=== PATIENT | male | born 1940 | race Caucasian/White ===

== ENCOUNTER 2017-05-21 02:45 | Inpatient (IN) | payer MEDICARE ==
[2017-05-21] MEDS ORDERED: NS 0.9% 1000 ML* 1,000 ML IV ONE (02:55)
[2017-05-21 03:33] LABS: Hematocrit 31 % (42-52); Hemoglobin 10.4 g/dl (14.0-18.0); Mean Corpuscular HGB Conc 33 g/dl (31-36); Mean Corpuscular Hemoglobin 30 pg (27-31); Mean Corpuscular Volume 92 fL (80-94); Mean Platelet Volume 9 um3 (7.4-10.4); Red Blood Count 3.44 10^6/ul (4.0-5.4); Red Cell Distribution Width 13 % (10.5-15); White Blood Count 8.3 10^3/ul (3.5-10.8)
[2017-05-21 03:44] LABS: Albumin 3.5 g/dL (3.2-5.2); BUN/Creatinine Ratio 41.3 (8-20); EGFR African American 89.5 (>60); EGFR Non-African American 69.6 (>60); Globulin 3.2 g/dL (2-4); Potassium 4.4 mmol/L (3.5-5.0); Total Bilirubin 0.5 mg/dL (0.2-1.0); Total Protein 6.7 g/dL (6.4-8.9)
--- NOTE | 2017-05-21 04:12 | ED ---
Elizabeth Arreola Alfonso, scribed for Sonia Mccord MD on 05/21/17 at 0317 . GI/ HPI - HPI Summary HPI Summary: This patient is a 76 year old M BIBA to [facility] with a chief complaint of blood in vomit and stool since 0200 today. Pt vomited once coffee ground emesis. Pt reports 3x black tarry stool BM. Pt rates the pain 0/10 in severity. Symptoms aggravated and alleviated by nothing. Pt denies abdominal pain. In the field his BP was 80 systolic and after 100 cc of normal saline was 100 systolic. Pt is not on Coumadin or NSAIDs. Denies ETOH and substance abuse. PMHx of GI bleeds. - History of Current Complaint Chief Complaint: EDGIBleed Time Seen by Provider: 05/21/17 02:54 Stated Complaint: BLOODY STOOL/VOMITING Hx Obtained From: Patient Onset/Duration: Started Minutes Ago - 199 today, Still Present Timing: Constant Severity: Moderate Current Severity: Moderate Pain Intensity: 0 Pain Characteristics: Other: - Bleeding Associated Signs and Symptoms: Positive: Hematemesis - Coffee ground, Black Tarry Stool. Negative: Abdominal Pain Aggravating Factor(s): Nothing Alleviating Factor(s): Nothing - Allergy/Home Medications Allergies/Adverse Reactions: Allergies Allergy/AdvReac Type Severity Reaction Status Date / Time No Known Allergies Allergy Verified 05/21/17 03:19 PMH/Surg Hx/FS Hx/Imm Hx GI History: Reports: Hx Gastrointestinal Bleed Sensory History: Denies: Hx Deafness Opthamlomology History: Denies: Hx Legally Blind - Surgical History Surgery Procedure, Year, and Place: hernia surgeries; Infectious Disease History: No Infectious Disease History: Denies: Traveled Outside the [place] in Last 30 Days - Family History Known Family History: Negative: Hypertension - Social History Lives: With Family Alcohol Use: Rare Substance Use Type: Reports: None Smoking Status (MU): Never Smoked Tobacco Review of Systems Positive: Vomiting - coffee ground emesis. Negative: Abdominal Pain Genitourinary: Other - Positive black tarry stool BM All Other Systems Reviewed And Are Negative: Yes Physical Exam Triage Information Reviewed: Yes Vital Signs On Initial Exam: Initial Vitals Temp Pulse Resp BP Pulse Ox 97.5 F 63 18 108/44 95 05/21/17 02:48 05/21/17 02:48 05/21/17 02:48 05/21/17 02:48 05/21/17 02:48 Vital Signs Reviewed: Yes Appearance: Positive: Well-Appearing, No Pain Distress Skin: Positive: Warm, Skin Color Reflects Adequate Perfusion, Dry Eyes: Positive: EOMI, BONNIE ENT: Positive: Pharynx normal, TMs normal Neck: Positive: Supple, Nontender Respiratory/Lung Sounds: Positive: Clear to Auscultation, Breath Sounds Present. Negative: Rales, Rhonchi, Wheezes Cardiovascular: Positive: RRR, Other - No gallops. Negative: Murmur, Rub Abdomen Description: Positive: Nontender, Soft, Other: - No rebound. Melena at rectal exam.. Negative: Distended, Guarding Bowel Sounds: Positive: Present Musculoskeletal: Positive: Strength/ROM Intact, Other - No edema Neurological: Positive: Sensory/Motor Intact, Alert, Oriented to Person Place, Time, CN Intact II-III - 2-12 Psychiatric: Positive: Affect/Mood Appropriate - [place] Coma Scale Coma Scale Total: 15 Diagnostics - Vital Signs Vital Signs Temp Pulse Resp BP Pulse Ox 05/21/17 02:48 97.5 F 63 18 108/44 95 - Laboratory Lab Results: Lab Results 05/21/17 05/21/17 05/21/17 Range/Units 03:02 03:02 03:02 WBC 8.3 (3.5-10.8) 10^3/ul RBC 3.44 L (4.0-5.4) 10^6/ul Hgb 10.4 L (14.0-18.0) g/dl Hct 31 L (42-52) % MCV 92 (80-94) fL MCH 30 (27-31) pg MCHC 33 (31-36) g/dl RDW 13 (10.5-15) % Plt Count 128 L (150-450) 10^3/ul MPV 9 (7.4-10.4) um3 Neut % (Auto) 66.7 (38-83) % Lymph % (Auto) 21.2 L (25-47) % Mcdonough % (Auto) 10.1 H (1-9) % Eos % (Auto) 1.6 (0-6) % Baso % (Auto) 0.4 (0-2) % Absolute Neuts (auto) 5.5 (1.5-7.7) 10^3/ul Absolute Lymphs (auto) 1.8 (1.0-4.8) 10^3/ul Absolute Monos (auto) 0.8 (0-0.8) 10^3/ul Absolute Eos (auto) 0.1 (0-0.6) 10^3/ul Absolute Basos (auto) 0 (0-0.2) 10^3/ul Absolute Nucleated RBC 0 10^3/ul Nucleated RBC % 0 INR (Anticoag Therapy) 1.11 (0.89-1.11) APTT 25.0 L (26.0-36.3) seconds Sodium 132 L (133-145) mmol/L Potassium 4.4 (3.5-5.0) mmol/L Chloride 98 L (101-111) mmol/L Carbon Dioxide 29 (22-32) mmol/L Anion Gap 5 (2-11) mmol/L BUN 43 H (6-24) mg/dL Creatinine 1.04 (0.67-1.17) mg/dL Est GFR ( Amer) 89.5 (>60) Est GFR (Non-Af Amer) 69.6 (>60) BUN/Creatinine Ratio 41.3 H (8-20) Glucose 159 H (70-100) mg/dL Calcium 9.0 (8.6-10.3) mg/dL Total Bilirubin 0.50 (0.2-1.0) mg/dL AST 19 (13-39) U/L ALT 10 (7-52) U/L Alkaline Phosphatase 49 (34-104) U/L Total Protein 6.7 (6.4-8.9) g/dL Albumin 3.5 (3.2-5.2) g/dL Globulin 3.2 (2-4) g/dL Albumin/Globulin Ratio 1.1 (1-3) Blood Type Antibody Screen 05/21/17 Range/Units 03:02 WBC (3.5-10.8) 10^3/ul RBC (4.0-5.4) 10^6/ul Hgb (14.0-18.0) g/dl Hct (42-52) % MCV (80-94) fL MCH (27-31) pg MCHC (31-36) g/dl RDW (10.5-15) % Plt Count (150-450) 10^3/ul MPV (7.4-10.4) um3 Neut % (Auto) (38-83) % Lymph % (Auto) (25-47) % Mcdonough % (Auto) (1-9) % Eos % (Auto) (0-6) % Baso % (Auto) (0-2) % Absolute Neuts (auto) (1.5-7.7) 10^3/ul Absolute Lymphs (auto) (1.0-4.8) 10^3/ul Absolute Monos (auto) (0-0.8) 10^3/ul Absolute Eos (auto) (0-0.6) 10^3/ul Absolute Basos (auto) (0-0.2) 10^3/ul Absolute Nucleated RBC 10^3/ul Nucleated RBC % INR (Anticoag Therapy) (0.89-1.11) APTT (26.0-36.3) seconds Sodium (133-145) mmol/L Potassium (3.5-5.0) mmol/L Chloride (101-111) mmol/L Carbon Dioxide (22-32) mmol/L Anion Gap (2-11) mmol/L BUN (6-24) mg/dL Creatinine (0.67-1.17) mg/dL Est GFR ( Amer) (>60) Est GFR (Non-Af Amer) (>60) BUN/Creatinine Ratio (8-20) Glucose (70-100) mg/dL Calcium (8.6-10.3) mg/dL Total Bilirubin (0.2-1.0) mg/dL AST (13-39) U/L ALT (7-52) U/L Alkaline Phosphatase (34-104) U/L Total Protein (6.4-8.9) g/dL Albumin (3.2-5.2) g/dL Globulin (2-4) g/dL Albumin/Globulin Ratio (1-3) Blood Type O Positive Antibody Screen Pending Result Diagrams: 05/21/17 03:02 05/21/17 03:02 Lab Statement: Any lab studies that have been ordered have been reviewed, and results considered in the medical decision making process. - EKG 0256 Cardiac Rate: NL - BPM 63 EKG Rhythm: Sinus Rhythm EKG Interpretation: Low voltage. GIGU Course/Dx - Course Course Of Treatment: 76 yo male with gi bleed will be admitted by Dr. Majano, bp stabilized with one liter of normal saline - Diagnoses Provider Diagnoses: GI bleed - Physician Notifications Discussed Care Of Patient With: Bradley Majano Time Discussed With Above Provider: 03:54 Instructed by Provider To: Other - Consulted Dr. Majano (hospitalist) who agrees to admit. Discharge - Discharge Plan Condition: Improved Disposition: ADMITTED TO [facility] documentation as recorded by the Elizabeth dave Alfonso accurately reflects the service I personally performed and the decisions made by me, Sonia Mccord MD.
[2017-05-21] MEDS ORDERED: NS 0.9% 250 ML* 250 ML ONE (04:47)
[2017-05-21] MEDS: Pantoprazole IV* 80 MG in NS 0.9% 250 ML* 250 ML IVPB SCH ×2 (04:53→22:42)
[2017-05-21] MEDS: Pantoprazole IV* 40 MG IV ONE ×2 (04:54→05:22)
[2017-05-21] MEDS ORDERED: Pantoprazole IV* 80 MG in NS 0.9% 250 ML* 250 ML IVPB SCH (05:00)
[2017-05-21] MEDS ORDERED: Pantoprazole IV* 40 MG ONE (05:16)
[2017-05-21 06:02] LABS: Hematocrit 27 % (42-52)
--- NOTE | 2017-05-21 06:52 | HP ---
CC: Dr. Bishop * DATE OF ADMISSION: 05/21/17 PRIMARY CARE PROVIDER: Dr. Bishop CHIEF COMPLAINT: Vomiting blood. HISTORY OF PRESENT ILLNESS: The patient is a 76-year-old gentleman who said that earlier this evening he started to feel like he wasn't able to get fresh air. It wasn't that he was short of breath, but that it just didn't seem right when he was breathing. It seemed like he was breathing inside a bag. His friend came over and helped him to the bathroom where he had a bloody bowel movement, and started vomiting up [id number] material. Then he started having trouble staying awake. He felt like all the blood in his body was in his stomach. He lost consciousness around 2 a.m. His friend called 911 who came and took him to the ER. In the ER, the patient was found to be somewhat anemic and also to be guaiac positive. PAST MEDICAL HISTORY: Significant for benign prostatic hypertrophy, but he's unaware of what else, and we are attempting to get the records from his PCP. CURRENT MEDICATIONS: That we are aware of include Doxazosin 1 mg po q day. ALLERGIES/ADVERSE REACTIONS: He has no known drug allergies. FAMILY HISTORY: Reviewed, and non-contributory. SOCIAL HISTORY: No tobacco, alcohol, or recreational drug use. 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 He's a . He has no children. His friend, Mary Jane Rose, is his health care proxy; her number is [phone] and [phone]. His friend, Alphonso Marie, brought him in and helped with the history. REVIEW OF SYSTEMS: A 14-point review of systems was completed with the patient. All pertinent positives and negatives are in the history of present illness; otherwise, it is negative. PHYSICAL EXAMINATION GENERAL: A pleasant gentleman lying in bed in no acute distress. VITAL SIGNS: Blood pressure 105/57, pulse ox 98%, respiratory rate 19 breaths per minute, heart rate 65 beats per minute, temperature 97.5 degrees. HEENT: Normocephalic and atraumatic. Pupils are equal, round and reactive to light. Moist mucous membranes. He has poor dentition. NECK: Supple. No JVD, bruits, palpable thyroid or lymphadenopathy. CHEST: Clear to auscultation and percussion bilaterally. CARDIOVASCULAR: S1, S2 appreciated. Regular rate and rhythm. ABDOMEN: Positive bowel sounds in all four quadrants. Soft, nontender, and nondistended. No hepatosplenomegaly. EXTREMITIES: No cyanosis, clubbing, or edema. +2 peripheral pulses bilaterally. NEUROLOGIC: Alert and oriented x3. Moves all extremities. SKIN: No distinct rashes or abnormalities. LABORATORY DATA: White blood cell count 8.3, hemoglobin 10.4, hematocrit 31, platelets 128. Sodium 132, potassium 4.4, chloride 98, CO2 29, BUN 43, creatinine 1.04, glucose 159. INR 1.11. EKG shows normal sinus rhythm at a rate of 63 beats per minute, left axis deviation, left anterior hemiblock, no acute ST-T wave changes. ASSESSMENT AND PLAN: 1. Upper GI bleed - likely cause of his anemia and his coffee-ground emesis and melena. Will place on a Protonix drip. Check hemoglobin and hematocrit q 6 hours. Ask for GI to see him in the a.m. Make NPO. Normal saline 100 cc/ hour. 2. FEN - NPO and normal saline as noted. 3. DVT prophylaxis - sequential compression stockings. 4. The patient is a full code. TIME SEEN: Over 75 minutes were spent on this H and P, more than 40 minutes of which were spent in direct [id number]-ok-[id number] contact with the patient in evaluation, physical exam, counseling, and coordination of care. [id number]/[facility] #: [id number] MTDD
[2017-05-21] MEDS ORDERED: Midazolam* 1 MG/ML 10 ML VIAL (10 MG) ONE (09:30)
[2017-05-21] MEDS ORDERED: Meperidine SYRINGE* 50 MG/ML ONE (09:30)
[2017-05-21 12:48] LABS: Hematocrit 25 % (42-52); Hemoglobin 8.4 g/dl (14.0-18.0)
--- NOTE | 2017-05-21 15:19 | PN ---
Progress Note - Progress Note Date of Service: 05/21/17 Note: Pt seen in follow up this afternoon from his admission this AM. The patient has since had an upper endoscopy which showed an antral ulcer. Will continue to follow H/H which is still dropping-transfuse for Hb<7. Continue protonix drip.
[2017-05-21 19:58] LABS: Hematocrit 26 % (42-52); Hemoglobin 8.4 g/dl (14.0-18.0)
[2017-05-21] MEDS: NS 0.9% 1000 ML* 1,000 ML IV SCH (22:44)
--- NOTE | 2017-05-22 02:21 | CONS ---
GASTROENTEROLOGY CONSULT: DATE OF CONSULTATION: 05/21/17 CONSULTING PHYSICIANS: Tej Bishop MD, [place], [place]; Katie Duckworth DO. REASON FOR CONSULTATION: Coffee-ground emesis and black stool. 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 He had a loose black stool and then started coughing up or vomiting some coffee- ground material. He fainted around 2 a.m. and came to the emergency room. He was found to be heme positive with a hemoglobin of 10.4, platelets 128. INR 1.11, BUN 43, and normal LFTs. He was admitted on a Protonix drip. He has not had any further emesis or loose stools. He states that he feels his stomach is rumbling and he can hear contractions. He denies any prior episodes like this. 20 years ago or more, he did have upper endoscopy in [place] with stretching. Per the report, he had colonoscopy results of that are not known. He denies any current dyspepsia or dysphagia. He eats a general diet. He states that his weight has not changed in the last year or two. He does take a baby aspirin and also Bufferin most nights to deal with foot or leg pain. PAST MEDICAL HISTORY: 1. BPH. 2. History of GERD with esophageal stricture. SOCIAL HISTORY: He lives in [place] and is a . 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 He has a housemate, Alphonso Marie, who helps with his care. His proxy is his niece, Mary Jane Rose, retired RN ). REVIEW OF SYSTEMS: There is no history of CVA, seizures, other syncope, hepatitis, jaundice, alcoholism, hemoptysis, TB, or renal stones. EXAM: He is a bearded older man, hard of hearing, in no overt distress at this time. He denies any pain, though states his abdomen is rumbling. Pulse is 65, blood pressure 105/57. HEENT exam shows no icterus. Mucous membranes are normal. He has no adenopathy. His lungs are clear and heart sounds are regular. The abdomen is symmetric without any surgical scars. Soft and nontender. Rectal: Deferred given the hematemesis. Extremities show no edema. Neurologic: Nonfocal with him being hard of hearing, but otherwise cranial nerves are normal. He moves all 4 extremities symmetrically. Gait was not tested. IMAGING: None this admission so far. He did have a brain CT in September [address] 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 No contrast was used. IMPRESSION: Gastrointestinal bleeding from the upper tract, probably related to aspirin use. Further details will be obtained from his niece. [id number]/[facility] #: [id number] [facility]
[2017-05-22 05:26] LABS: Hematocrit 26 % (42-52); Hemoglobin 8.7 g/dl (14.0-18.0); Mean Corpuscular HGB Conc 33 g/dl (31-36); Mean Corpuscular Hemoglobin 31 pg (27-31); Mean Corpuscular Volume 92 fL (80-94); Mean Platelet Volume 8 um3 (7.4-10.4); Red Blood Count 2.83 10^6/ul (4.0-5.4); Red Cell Distribution Width 13 % (10.5-15); White Blood Count 6.5 10^3/ul (3.5-10.8)
[2017-05-22 05:36] LABS: Calcium 8.4 mg/dL (8.6-10.3); EGFR Non-African American 85.5 (>60); Potassium 3.8 mmol/L (3.5-5.0)
[2017-05-22] MEDS: NS 0.9% 1000 ML* 1,000 ML IV SCH (09:41)
--- NOTE | 2017-05-22 10:41 | PN ---
Subjective Date of Service: 05/22/17 Interval History: Pt is feeling well. He states he feels much better now than he did yesterday morning. He denies any pain. No CP, SOB, dizziness. Objective Active Medications: Pantoprazole Sodium 80 mg/ (Sodium Chloride) 250 mls @ 25 mls/hr IVPB Q10H [facility] Last Admin: 05/21/17 22:42 Dose: 25 mls/hr Sodium Chloride (Ns 0.9% 1000 Ml*) 1,000 mls @ 100 mls/hr IV PER RATE [facility] Last Admin: 05/22/17 09:41 Dose: 100 mls/hr Vital Signs 05/21/17 05/21/17 05/21/17 11:26 11:45 12:00 Temperature 97.8 F Pulse Rate 58 Respiratory 19 16 15 Rate Blood Pressure 114/65 (mmHg) O2 Sat by Pulse 95 Oximetry 05/21/17 05/21/17 05/21/17 13:00 14:00 15:00 Temperature Pulse Rate Respiratory 15 17 20 Rate Blood Pressure (mmHg) O2 Sat by Pulse Oximetry 05/21/17 05/21/17 05/21/17 15:23 16:00 17:00 Temperature 98.2 F Pulse Rate 61 Respiratory 16 14 21 Rate Blood Pressure 111/58 (mmHg) O2 Sat by Pulse 97 Oximetry 05/21/17 05/21/17 05/21/17 18:00 19:00 19:21 Temperature 98.3 F Pulse Rate 69 Respiratory 21 20 16 Rate Blood Pressure 147/55 (mmHg) O2 Sat by Pulse 98 Oximetry 05/21/17 05/21/17 05/21/17 20:00 20:05 21:00 Temperature Pulse Rate Respiratory 12 25 20 Rate Blood Pressure (mmHg) O2 Sat by Pulse Oximetry 05/21/17 05/21/17 05/21/17 22:00 23:00 23:31 Temperature 97.9 F Pulse Rate 65 Respiratory 9 0 20 Rate Blood Pressure 113/52 (mmHg) O2 Sat by Pulse 98 Oximetry 05/22/17 05/22/17 05/22/17 00:00 01:00 02:00 Temperature Pulse Rate Respiratory 8 20 0 Rate Blood Pressure (mmHg) O2 Sat by Pulse Oximetry 05/22/17 05/22/17 05/22/17 03:00 03:57 04:00 Temperature 98.3 F Pulse Rate 57 Respiratory 0 18 1 Rate Blood Pressure 117/40 (mmHg) O2 Sat by Pulse 99 Oximetry Oxygen Devices in Use Now: None Appearance: Elderly male sitting in a chair, NAD Eyes: No Scleral Icterus Ears/Nose/Mouth/Throat: Mucous Membranes Moist Respiratory: Symmetrical Chest Expansion and Respiratory Effort, Clear to Auscultation Cardiovascular: NL Sounds; No Murmurs; No JVD, RRR, No Edema Abdominal: NL Sounds; No Tenderness; No Distention Extremities: No Clubbing, Cyanosis Skin: No Rash or Ulcers, No Nodules or Sclerosis Neurological: Alert and Oriented x 3 Result Diagrams: 05/22/17 05:07 05/22/17 05:07 Additional Lab and Data: Lab Results 05/21/17 05/21/17 05/21/17 Range/Units 03:02 03:02 03:02 WBC 8.3 (3.5-10.8) 10^3/ul RBC 3.44 L (4.0-5.4) 10^6/ul Hgb 10.4 L (14.0-18.0) g/dl Hct 31 L (42-52) % MCV 92 (80-94) fL MCH 30 (27-31) pg MCHC 33 (31-36) g/dl RDW 13 (10.5-15) % Plt Count 128 L (150-450) 10^3/ul MPV 9 (7.4-10.4) um3 Neut % (Auto) 66.7 (38-83) % Lymph % (Auto) 21.2 L (25-47) % [place] % (Auto) 10.1 H (1-9) % Eos % (Auto) 1.6 (0-6) % Baso % (Auto) 0.4 (0-2) % Absolute Neuts (auto) 5.5 (1.5-7.7) 10^3/ul Absolute Lymphs (auto) 1.8 (1.0-4.8) 10^3/ul Absolute Monos (auto) 0.8 (0-0.8) 10^3/ul Absolute Eos (auto) 0.1 (0-0.6) 10^3/ul Absolute Basos (auto) 0 (0-0.2) 10^3/ul Absolute Nucleated RBC 0 10^3/ul Nucleated RBC % 0 INR (Anticoag Therapy) 1.11 (0.89-1.11) APTT 25.0 L (26.0-36.3) seconds Sodium 132 L (133-145) mmol/L Potassium 4.4 (3.5-5.0) mmol/L Chloride 98 L (101-111) mmol/L Carbon Dioxide 29 (22-32) mmol/L Anion Gap 5 (2-11) mmol/L BUN 43 H (6-24) mg/dL Creatinine 1.04 (0.67-1.17) mg/dL Est GFR ( Amer) 89.5 (>60) Est GFR (Non-Af Amer) 69.6 (>60) BUN/Creatinine Ratio 41.3 H (8-20) Glucose 159 H (70-100) mg/dL Calcium 9.0 (8.6-10.3) mg/dL Total Bilirubin 0.50 (0.2-1.0) mg/dL AST 19 (13-39) U/L ALT 10 (7-52) U/L Alkaline Phosphatase 49 (34-104) U/L Total Protein 6.7 (6.4-8.9) g/dL Albumin 3.5 (3.2-5.2) g/dL Globulin 3.2 (2-4) g/dL Albumin/Globulin Ratio 1.1 (1-3) Blood Type Antibody Screen 05/21/17 Range/Units 03:02 WBC (3.5-10.8) 10^3/ul RBC (4.0-5.4) 10^6/ul Hgb (14.0-18.0) g/dl Hct (42-52) % MCV (80-94) fL MCH (27-31) pg MCHC (31-36) g/dl RDW (10.5-15) % Plt Count (150-450) 10^3/ul MPV (7.4-10.4) um3 Neut % (Auto) (38-83) % Lymph % (Auto) (25-47) % [place] % (Auto) (1-9) % Eos % (Auto) (0-6) % Baso % (Auto) (0-2) % Absolute Neuts (auto) (1.5-7.7) 10^3/ul Absolute Lymphs (auto) (1.0-4.8) 10^3/ul Absolute Monos (auto) (0-0.8) 10^3/ul Absolute Eos (auto) (0-0.6) 10^3/ul Absolute Basos (auto) (0-0.2) 10^3/ul Absolute Nucleated RBC 10^3/ul Nucleated RBC % INR (Anticoag Therapy) (0.89-1.11) APTT (26.0-36.3) seconds Sodium (133-145) mmol/L Potassium (3.5-5.0) mmol/L Chloride (101-111) mmol/L Carbon Dioxide (22-32) mmol/L Anion Gap (2-11) mmol/L BUN (6-24) mg/dL Creatinine (0.67-1.17) mg/dL Est GFR ( Amer) (>60) Est GFR (Non-Af Amer) (>60) BUN/Creatinine Ratio (8-20) Glucose (70-100) mg/dL Calcium (8.6-10.3) mg/dL Total Bilirubin (0.2-1.0) mg/dL AST (13-39) U/L ALT (7-52) U/L Alkaline Phosphatase (34-104) U/L Total Protein (6.4-8.9) g/dL Albumin (3.2-5.2) g/dL Globulin (2-4) g/dL Albumin/Globulin Ratio (1-3) Blood Type O Positive Antibody Screen Pending Microbiology and Other Data: Microbiology 05/21/17 10:35 CLOtest - Final Gastric Antrum Assess/Plan/Problems-Billing Mr Skinner is a 76 yo M who presented to the ER with c/o bloody BM and vomiting blood and was admitted for a presumed upper GI bleed. - Patient Problems (1) Upper GI bleed Current Visit: Yes Status: Acute Code(s): K92.2 - GASTROINTESTINAL HEMORRHAGE, UNSPECIFIED SNOMED Code(s): 72440365 Comment: The patient underwent EGD yesterday that revealed an antral ulcer. Continue protonix drip for another 24hr and plan on d/c home tomorrow as long as his H/H remains stable. Will get the patient up and moving today in the hallway to make sure he does not have any dizziness when walking. (2) Acute blood loss anemia Current Visit: Yes Status: Acute Code(s): D62 - ACUTE POSTHEMORRHAGIC ANEMIA SNOMED Code(s): 619635949 Comment: H/H dropped to a low of 8.4/25 from the upper GI bleed. Today's H/H slightly better. Will get follow up H/H tomorrow AM. (3) DVT prophylaxis Current Visit: Yes Status: Acute Code(s): [id number] - SNOMED Code(s): 818458030 Comment: SCDs (4) Full code status Current Visit: Yes Status: Acute Code(s): Z78.9 - OTHER SPECIFIED HEALTH STATUS SNOMED Code(s): 788204577
--- NOTE | 2017-05-22 10:50 | PRO ---
DATE: 05/21/17 - ROOM #446 REFERRING PHYSICIAN: Dr. Tej Bishop, [place]; Dr. Katie Duckworth, Hospitalist. * PROCEDURE: Upper gastrointestinal endoscopy and CLOtest. 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 He does take Bufferin at nights because of foot pain and also a baby aspirin. He had a past history of an esophageal stretch 20 years ago in [place]. Records not available. He denies any use of acid blockers or antacids and an extended list specific trade names was reviewed. ENDOSCOPIST: Dr. Treviño. MEDICATION: Midazolam 6, meperidine 75 - The patient is restless. FINDINGS: He is an elderly man with a full mejias and currently edentulous having left his dentures at home. EGD: Larynx - quite gaggy. There was a question of an upper sphincter bar or diverticulum. Barium swallow will be planned later. Esophagus - In the lower 1/3rd hemispheric, mild rings without any formal stricture. There is a small hiatal hernia with the EG junction at about 39. There is a minimal erythema but no erosions. The sliding hiatal hernia is variable during different phases. Stomach: A small to moderate amount of black mucoid debris scattered about. No erosions or ulcers were seen in the cardia, fundus or body. The distal antrum prepyloric was extensively scarred and contorted and spastic with an increase in the black secretions, but no red blood. Some erosions were seen but not a dominant ulcer. A specific ulcer with stigmata was not seen, but there is clearly much peptic inflammation in this area. The pylorus is patent. Duodenum - the bulb and second through third portions did not show any erosions or ulcers. No acute bleeding was seen. IMPRESSION: 1. Small sliding hiatal hernia. 2. Esophageal scarring - mild without a formal stricture. 3. 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 4. Gastritis and suspected gastric antral ulcers - PPI drip for another day, then b.i.d. PPIs and given the failure to visualize an ulcer base for prognostic purposes would keep hospitalized at least 48 hours, potentially longer. [id number]/[facility] #: [id number] [facility]
[2017-05-22] MEDS: Pantoprazole IV* 80 MG in NS 0.9% 250 ML* 250 ML IVPB SCH ×3 (11:25→21:01)
[2017-05-23] MEDS: Pantoprazole IV* 80 MG in NS 0.9% 250 ML* 250 ML IVPB SCH ×2 (01:13→12:12)
[2017-05-23 07:51] VITALS: BP 120/57
[2017-05-23 13:36] LABS: Hematocrit 27 % (42-52); Hemoglobin 8.9 g/dl (14.0-18.0); Mean Corpuscular HGB Conc 33 g/dl (31-36); Mean Corpuscular Hemoglobin 31 pg (27-31); Mean Corpuscular Volume 92 fL (80-94); Mean Platelet Volume 9 um3 (7.4-10.4); Red Blood Count 2.91 10^6/ul (4.0-5.4); Red Cell Distribution Width 13 % (10.5-15); White Blood Count 7.7 10^3/ul (3.5-10.8)
--- NOTE | 2017-05-24 15:23 | DS ---
CC: Dr. Bishop; Dr. Treviño * DISCHARGE SUMMARY: DATE OF ADMISSION: 05/21/17. DATE OF DISCHARGE: 05/23/17. PRIMARY CARE PROVIDER: Dr. Bishop. PRINCIPAL DIAGNOSIS: Upper gastrointestinal bleed secondary to suspected gastric antral ulcers. SECONDARY DIAGNOSES: Benign prostatic hypertrophy. DISCHARGE MEDICATIONS: 1. Doxazosin 1 mg p.o. daily. 2. Omeprazole 20 mg p.o. b.i.d. 3. Ferrous sulfate 325 mg p.o. daily. HOSPITAL COURSE: Mr. Skinner is a 76-year-old male who presented to the emergency room on 05/21/17 with complaints of vomiting blood. The patient felt unwell the evening prior to admission. He noticed that his breathing did not feel completely normal. The patient was noted to have a bloody bowel movement as well as coffee ground emesis. The patient was brought to the emergency room after he lost consciousness. The patient was found to be anemic in the ER and guaiac positive. The patient was seen in consultation by Dr. Treviño who took him for upper endoscopy. A small sliding hiatal hernia, esophageal scarring without formal stricture, possible cricopharyngeal abnormality and gastritis with suspected, gastric antral ulcers were identified. The patient had been placed on Protonix drip from the time of admission. The patient did drop his H and H significantly from a hemoglobin 10.4 on admission down to a low of 8.4. On the day of discharge, his hemoglobin was up to 8.9. The patient has been up and walking around without any difficulty. It was felt that the patient's gastric antral ulcers were likely secondary to aspirin use. The patient has been recommended to stay off the aspirin for at least two weeks. The patient should follow up with his primary care provider in the next 4 to 7 days. He should then make a referral to Dr. Treviño as an outpatient for likely followup EGD. FOLLOWUP CONCERNS: The patient is being discharged to home today, 05/23/17. ACTIVITY LEVEL: As tolerated. DIET: Regular. CONDITION ON DISCHARGE: Stable. TIME SPENT: Thirty-five minutes were spent discharging this patient. [id number]/[facility] #: [id number] [facility]
== END 2017-05-23 14:50 | disposition home or self-care (01) | DRG 378 ==
LOC: ED 02:45 → MEDTELE 04:53
PROVIDERS: ADMIT Internal Medicine; ATTEND Hospitalist
PROC: 0DJ08ZZ Inspection of Upper Intestinal Tract, Via Natural or Artificial Opening Endoscopic (ICD-10-PCS; principal; 2017-05-21)
DX: K25.4 Chronic or unspecified gastric ulcer with hemorrhage (principal); D62 Acute posthemorrhagic anemia; K22.2 Esophageal obstruction; N40.0 Benign prostatic hyperplasia without lower urinary tract symptoms; K44.9 Diaphragmatic hernia without obstruction or gangrene; T39.015A Adverse effect of aspirin, initial encounter; K21.9 Gastro-esophageal reflux disease without esophagitis; K29.70 Gastritis, unspecified, without bleeding
CPT/HCPCS: 36415; 80048; 80053; 82272; 85014; 85018; 85025; 85027; 85610; 85730; 86850; 86900; 86901; 87077; 93005; J2250; J2310